=== PATIENT | female | born 2000 | race Caucasian/White ===

== ENCOUNTER 2022-05-29 08:33 | Outpatient (CLI) | payer OTHER, SELFPAY ==
--- NOTE | 2022-05-29 08:45 | CRLHL7_ITS ---
For Patients: As a result of the Century Cures Act, medical imaging exams and procedure reports are released immediately into your electronic medical record. You may view this report before your referring provider. If you have questions, please contact your health care provider. INDICATION: Third trimester scan, evaluate growth. CHRONIC HYPERTENSION AFFECTING COMPARISON: 03/22/2022 TECHNIQUE: Real time reese scale imaging of the fetus was performed. FINDINGS: Sonographic imaging demonstrates a single living intrauterine gestation. Fetus demonstrates a regular cardiac rate of 139 beats per minute. Fetus has a vertex position. The placenta lies posteriorly. Amniotic fluid volume appears normal and there is a single deepest vertical pocket: 5.0 cm. The estimated weight is 1965gm which lies at the 43rd %. On the prior OB ultrasound exam dated 03/22/2022 the estimated weight was at the 52nd%. BPD 34th percentile. HC 30th percentile. AC 53rd percentile. FL 38th percentile. The HC/AC ratio measures 1.05 range (0.96-1.13). Normal gross body movements, tone and respiratory activity. IMPRESSION: Sonographic gestational age 32 weeks 3 days and sonographic due date 07/21/2022. Good correlation with dates. Normal interval growth. Estimated weight 43rd percentile. Abdominal circumference 53rd percentile. Normal biophysical profile 06/19. Dictated by Wander Escobar MD @ 05/29/2022 10:12:37 AM (Electronically Signed)
== END 2022-05-29 08:34 | disposition home or self-care (01) ==
PROVIDERS: Visit Provider Physician Assistant
DX: O10.913 Unspecified pre-existing hypertension complicating pregnancy, third trimester (principal); Z3A.32 32 weeks gestation of pregnancy
CPT/HCPCS: 76816; 76819

== ENCOUNTER 2022-06-19 10:46 | Outpatient (CLI) | payer OTHER, SELFPAY ==
[2022-06-19 15:23] LABS: Alanine Aminotransferase* 33 U/L (4-35); Aspartate Amino Transferase* 25 U/L (12-35)
[2022-06-19 15:25] LABS: Total Protein Urine 19 mg/dL
[2022-06-19 15:26] LABS: Creatinine Urine 134.4 mg/dL
[2022-06-20 09:12] LABS: Strep B DNA Probe NEGATIVE (Negative)
== END 2022-06-19 10:47 | disposition home or self-care (01) ==
PROVIDERS: Visit Provider Obstetrics & Gynecology
DX: Z34.93 Encounter for supervision of normal pregnancy, unspecified, third trimester (principal); Z3A.35 35 weeks gestation of pregnancy
CPT/HCPCS: 82570; 84156; 84450; 84460; 84550; 87081; 87653

== ENCOUNTER 2022-06-23 09:32 | Outpatient (CLI) | payer OTHER, SELFPAY ==
[2022-06-23 12:15] LABS: Alanine Aminotransferase* 33 U/L (4-35); Aspartate Amino Transferase* 27 U/L (12-35); Blood Urea Nitrogen* 11 mg/dL (5-24); Creatinine* 0.5 mg/dL (0.5-1.5); Estimated Glomerular Filt Rate 134 ml/min
[2022-06-23 12:24] LABS: Total Protein Urine 13 mg/dL
== END 2022-06-23 09:33 | disposition home or self-care (01) ==
PROVIDERS: Obstetrics & Gynecology; Visit Provider Obstetrics & Gynecology
DX: O10.913 Unspecified pre-existing hypertension complicating pregnancy, third trimester (principal); Z3A.35 35 weeks gestation of pregnancy
CPT/HCPCS: 76816; 76819; 82565; 82570; 84156; 84450; 84460; 84520; 87081; 87653

== ENCOUNTER 2022-06-24 10:55 | Outpatient (CLI) | payer OTHER, SELFPAY ==
[2022-06-24] MEDS: BETAMETHASONE SOD PHOS/ACETATE 6 MG/ML ML 12 MG IM (11:22)
== END 2022-06-24 11:25 | disposition home or self-care (01) ==
LOC: OB CLI 10:56 → OB 06-26 07:37
PROVIDERS: Visit Provider Obstetrics & Gynecology
DX: Z34.93 Encounter for supervision of normal pregnancy, unspecified, third trimester (principal); Z3A.35 35 weeks gestation of pregnancy
CPT/HCPCS: 99211; J0702

== ENCOUNTER 2022-06-26 09:32 | Outpatient (CLI) | payer OTHER, SELFPAY ==
--- NOTE | 2022-06-26 09:45 | CRLHL7_ITS ---
For Patients: As a result of the Century Cures Act, medical imaging exams and procedure reports are released immediately into your electronic medical record. You may view this report before your referring provider. If you have questions, please contact your health care provider. INDICATION: HYPERTENSION TECHNIQUE: Real time reese scale imaging of the fetus was performed. COMPARISON: 06/23/2022 FINDINGS: Sonographic imaging demonstrates a single living intrauterine gestation. Fetus demonstrates a regular cardiac rate of 161 beats per minute. Fetus has a vertex position. The placenta lies fundal posterior. Amniotic fluid volume appears normal and there is a single deepest pocket of 5.0 cm. The estimated weight is 2801gm which lies at the 42nd %. On the prior OB ultrasound dated 06/23/2022 the estimated weight was at the 49th percentile. BPD 55th percentile. HC 24th percentile. AC 55th percentile. FL 23rd percentile. The fetus was active and demonstrated normal breathing movements. There was normal flexion and extension of the trunk and extremities. IMPRESSION: Normal biophysical profile score 8/8. Sonographic gestational age 36 weeks and 0 days and sonographic due date 07/24/2022. Good correlation with dates. Normal interval growth. Estimated weight 42nd percentile. Abdominal circumference 55th percentile. Dictated by Wander Escobar MD @ 06/26/2022 11:22:04 AM (Electronically Signed)
== END 2022-06-26 09:33 | disposition home or self-care (01) ==
PROVIDERS: Visit Provider Physician Assistant
DX: O10.913 Unspecified pre-existing hypertension complicating pregnancy, third trimester (principal); Z3A.36 36 weeks gestation of pregnancy
CPT/HCPCS: 76816; 76819

== ENCOUNTER 2022-06-30 15:57 | Inpatient (IN) | payer OTHER, SELFPAY ==
[2022-06-30 16:06] VITALS: BMI 42.5
[2022-06-30 16:23] VITALS: BP 139/75; PULSE 114
[2022-06-30 16:25] VITALS: RESP 16; TEMP 36.8
[2022-06-30 17:08] LABS: SARS PCR* Negative SARS-CoV-2 (Negative)
--- NOTE | 2022-06-30 17:37 | W.PM.LDBA ---
Subjective History of Present Illness Time Seen by Provider: 17:37 Date Seen: 06/30/22 Narrative: Patient is being admitted to Labor and Delivery for induction of labor secondary to chronic hypertension. She is a 22 year old at 36 6/7 weeks gestation. Her full history and physical was dictated by Dr. Ramírez on 06/23/2022. Please see this for details. Her Pena score is 4. Cervical ripening is indicated. Comments: Specific Issues/Plans Single, Father of baby is involved. Name?? Baby: Girl. Transfered OB at 16 weeks and 3 days.? 1.? Chronic hypertension Has never been on medication. Monitoring home blood pressures Baseline pre E labs 01/05/2022:? All normal. ALT 29, AST 19.? Protein creatinine ratio could not be calculated Protein creatinine ratio 02/07/2022: .11 Baby aspirin daily.? Stop at 36 weeks. If blood pressure is well controlled, not on medication will start growth ultrasounds Q4 weeks at 32 weeks testing starting at 32 weeks.? BPP and growth ultrasound at 36 weeks, ordered. If she remains off medication, delivery 38 to 39 6/7 weeks Blood pressure noted to be elevated on 06/19/2022:? Hemoglobin 11.3, platelets 318, uric acid 4.0, AST 25, ALT 33. Urine P/C: 0.10.? Initiate twice weekly antepartum testing. 06/23/2022:? BPP 06/19.? SDP:? 5.8 cm.? EFW 2773 g, 6 lb 2 oz, 49%. BP elevated on 06/23/2022 repeat preeclampsia labs ordered:? Hemoglobin 11.8, platelets 322, BUN 11, creatinine 0.5, AST 27, ALT 33, urine P/C: 0.10. Betamethasone:? 06/23 and 06/24/2022. Cervical ripening 06/30/2022 with Cook catheter followed by induction of labor on 07/01/2022 at 37 weeks 0 days gestation. 2.? Obesity, BMI greater than 40 Hemoglobin A1c 5.4% Anesthesia consult: 81 mg of aspirin daily? Will be doing growth ultrasounds and testing secondary to #1. 3.? Seizure disorder, with last seizure 04/2021 Patient self discontinued Keppra in August.? Patient was referred to neurology by previous provider, at transfer appointment she had not yet seen Neurology.? She does not want to restart Keppra. Referral placed for urgent consult with Neurology:? Previously seen at [facility], but has outstanding balance and they refuse to see her despite her request for payment plan. Dr. Cherry recommended she remain off Keppra Social work to be consulted 06/12/22 4.? MFM consult for 1-3 5.? Anxiety and depression Lexapro 15 mg, at transfer appointment reported doing very well. 6.? Asthma, mild intermittent.? Allergy induced.? Reports rare albuterol use. 7.? Declined flu and COVID vaccine 8.? Vitamin D deficient, vitamin-D at 1st OB 13.5 Stopped taking supplements with more sun exposure. Repeat .? 9.? Rubella nonimmune:?MMR OB - H&P: Exam Physical Exam: Vital signs: Pulse BP 114 H 139/75 06/30/22 16:23 06/30/22 16:23 Narrative: VITAL SIGNS: Noted above. GENERAL APPEARANCE: Alert cooperative white female in no acute distress. MOOD AND AFFECT: Normal. CV: Heart regular rate and rhythm. PULM: Lungs clear to auscultation bilaterally. ABDOMEN: Soft, gravid, nontender. Fundal height is consistent with term gestation. The fetus is in a vertex presentation by Brayan's. heart tones are present with the Doptones in the 140s. : Normal female external genitalia. Cervix is posterior, soft, 1 cm dilated, 50% effaced, with vertex at a -2 station but ballotable. EXTREMITIES: Without significant edema, nontender bilaterally. NEURO: Intact. OB - Problem Based A/P Additional Plan (1) : Status: Acute (2) Chronic hypertension during : Status: Acute Plan 1. We will check baseline labs, including CBC, ALT, AST, creatinine, and urine protein/creatinine ratio. 2. Verbal consent was obtained for cervical ripening. A Cook catheter was placed. The patient was unable to tolerate full distension the balloon secondary to severe cramping. 50 mL was instilled in to the intracervical balloon, and 30 mL into the intravaginal balloon. Will start low-dose Pitocin intravenously per protocol beginning at 9:00 p.m. this evening. 3. The patient was advised that there are medications that she can request overnight for discomfort and to aid with sleep if needed. 4. Dr. Ramírez to take over at 7:00 a.m. tomorrow morning. Delivery/Labor/Induction Plan Plan: induction Induction method: Intracervical balloon catheter
[2022-06-30 18:19] VITALS: BP 129/67; PULSE 83
[2022-06-30 19:32] VITALS: BP 131/74; PULSE 82
[2022-06-30 19:55] LABS: Total Protein Urine 15 mg/dL
[2022-06-30 19:56] LABS: Creatinine Urine 172.8 mg/dL
[2022-06-30 21:36] LABS: Basophils Percent Auto 0.2 % (0.0-3.0); Eosinophils Percent Auto 0.6 % (0.0-7.0); Hemoglobin* 11.6 gm/dL (12.0-16.0); Immature Granulocytes Abs Auto 0.04 K/uL (0.00-0.30); Lymphocytes Percent Auto 17.2 % (20-44); Mean Corpuscular HGB Conc 33 gm/dL (32-36); Mean Corpuscular Hemoglobin 28 pg (26-34); Mean Corpuscular Volume 84 fL (80-100); Monocytes Percent Auto 6.6 % (0.0-11.0); Neutrophils Percent Auto 75.1 % (42.0-72.0); Platelet Count* 345 K/uL (140-440); RDW Coefficient of Variation % 13.1 % (11.5-15.5); Red Blood Count 4.19 m/uL (4.00-5.20); White Blood Count* 12.48 K/uL (4.50-11.00)
[2022-06-30] MEDS: LACTATED RINGERS 1000 ML 1,000 ML 125 ML IV (21:47)
[2022-06-30 21:50] LABS: Slide Review Reflex No
[2022-06-30] MEDS: OXYTOCIN 30 unit/500 ML in NS 30 UNIT/500 ML BAG IVPB (21:50)
[2022-06-30 21:52] LABS: Alanine Aminotransferase* 31 U/L (4-35); Aspartate Amino Transferase* 21 U/L (12-35); Blood Urea Nitrogen* 13 mg/dL (5-24); Creatinine* 0.5 mg/dL (0.5-1.5); Est. Creatinine Clearance* 168.72; Estimated Glomerular Filt Rate 134 ml/min
[2022-06-30 21:53] LABS: INR 0.86 (0.91-1.10); Prothrombin Time 12.1 Seconds
[2022-06-30 21:54] LABS: Fibrinogen* 650 mg/dL (200-450)
[2022-06-30] MEDS: hydrOXYzine pamoate 25 MG CAPSULE 100 MG PO (22:53)
[2022-06-30] MEDS: MORPHINE 10 MG/ML inj IM (22:54)
[2022-06-30 23:56] VITALS: BP 117/56; PULSE 90; TEMP 36.6
[2022-07-01] VITALS (49 sets, daily range): BP systolic 114–172; BP diastolic 56–91; PULSE 81–134; RESP 14; TEMP 36.6–36.9; O2SAT 97–99
[2022-07-01] MEDS: LACTATED RINGERS 1000 ML 1,000 ML 125 ML IV (05:50)
--- NOTE | 2022-07-01 08:34 | PM.OBPNL ---
Pain Control Time Seen by Provider: 08:34 Date Seen: 07/01/22 Pain control: tolerating well Comments: Subjective: Patient is mildly uncomfortable with contractions. She states it feels like ?cramping?. Pitocin: 10 milliunits/minute. Verbal consent obtained for artificial rupture of membranes. Vital signs: Per electronic medical record. Most recent blood pressure 140/73. EFM: Baseline 140s, positive accelerations, negative decelerations, moderate variability, reactive. Category 1. [place]: Contractions every 2-3 minutes. SVE: 5 cm/50%/-1/posterior/soft. AROM: Clear, moderate fluid. Assessment: 22-year-old 1 para 0 at 37 weeks 0 days gestation undergoing induction of labor for chronic hypertension with gestational exacerbation. Plan: 1. Continue Pitocin per labor induction protocol. 2. GBS negative 3. Considering epidural for labor analgesia Assessment and Plan Pitocin rate (mU/min): 10 Assessment: induction ongoing Plan: continue present management
[2022-07-01] MEDS: fentaNYL 100 MCG/2 ML inj IVP ×2 (10:26→13:15)
[2022-07-01] MEDS: LACTATED RINGERS 1000 ML 1,000 ML 115 ML IV (14:44)
[2022-07-01] MEDS: ROPIVACAINE 0.2% 100 ml 100 ML 12 MG EPIDURAL (15:35)
[2022-07-01] MEDS: LIDOCAINE 2% (PF) 5 ML VIAL EPIDURAL (15:35)
--- NOTE | 2022-07-01 15:35 | P.OBPN_ITS ---
Pain Control Time Seen by Provider: 15:35 Date Seen: 07/01/22 Comments: S: Sandra is becoming very uncomfortable with contractions. She has had 2 doses of IV fentanyl. Verbal consent to check for cervical dilation. Pitocin: 11 milliunits/minute. O: Vital signs: Please see the patient's heart monitoring tracing for vital signs. Blood pressures have been variable between 130-155/78-85. EFM: 150s, moderate variability, (+) accelerations, sporadic early decelerations. Reactive. Category 2, reassuring status. [place]: Q 2-4 minutes SVE: 6 cm/100%/-1/mid/soft. A: 22-year-old 1 para 0 at 37 weeks 0 days gestation undergoing induction of labor for chronic hypertension with gestational exacerbation. P: 1. Continue current management with Pitocin per induction protocol. 2. Patient is requesting an epidural for labor analgesia: Anesthesia requested.
--- NOTE | 2022-07-01 15:47 | P.ANBPRC_ITS ---
[facility] Medical History Anxiety and depression Asthma Chronic hypertension during Seizure disorder Surgical History History of excision of pilonidal cyst Social History Smoking Status: Never smoker Meds Home Medications and Allergies Home Medications Medication Instructions Recorded Confirmed Type albuterol sulfate 90 mcg/actuation 2 puff inhalation Q6H PRN 05/29/22 06/30/22 History aerosol inhaler Allergies Allergy/AdvReac Type Severity Reaction Status Date / Time No Known Allergies Allergy Unknown Verified 06/30/22 16:58 Results Labs Labs: Laboratory Results - last 24 hr 06/30/22 06/30/22 06/30/22 16:10 19:30 21:25 WBC 12.48 H RBC 4.19 Hgb 11.6 L Hct 35.0 MCV 84 MCH 28 MCHC 33 RDW Coeff of Kia 13.1 Plt Count 345 Neut % (Auto) 75.1 H Lymph % (Auto) 17.2 L [place] % (Auto) 6.6 Eos % (Auto) 0.6 Baso % (Auto) 0.2 Neut # (Auto) 9.40 H Lymph # (Auto) 2.10 [place] # (Auto) 0.80 Eos # (Auto) 0.10 Baso # (Auto) 0.00 Abs Immat Gran (auto) 0.04 INR Fibrinogen BUN Creatinine Estimated Creat Clear Estimated GFR AST ALT Urine Creatinine 172.8 Protein/Creatinin Ratio 0.00 Urine Total Protein 15 SARS-CoV-2 (PCR) Negative SARS-CoV-2 Blood Type Antibody Screen 06/30/22 06/30/22 06/30/22 21:25 21:25 21:25 WBC RBC Hgb Hct MCV MCH MCHC RDW Coeff of Kia Plt Count Neut % (Auto) Lymph % (Auto) [place] % (Auto) Eos % (Auto) Baso % (Auto) Neut # (Auto) Lymph # (Auto) [place] # (Auto) Eos # (Auto) Baso # (Auto) Abs Immat Gran (auto) INR 0.86 L Fibrinogen 650 H BUN 13 Creatinine 0.5 Estimated Creat Clear 168.72 Estimated GFR 134 AST 21 ALT 31 Urine Creatinine Protein/Creatinin Ratio Urine Total Protein SARS-CoV-2 (PCR) Blood Type O Positive Antibody Screen NEGATIVE Vital Signs Vital Signs: Last Vital Signs Temp 97.9 F 07/01/22 13:34 Pulse 98 07/01/22 15:46 Resp 14 07/01/22 04:08 BP 152/78 H 07/01/22 15:46 Pulse Ox 98 07/01/22 15:43 Weight: 123.241 kg Height: 170.18 cm Anesthesia Procedures Epidural Insertion Patient Location: OB Start Time: 15:15 Stop Time: 16:02 Start Date: 07/01/22 Stop Date: 07/01/22 Patient Position: sitting Performed By: Niall Gill Preanesthetic Checklist: risks and benefits discussed and anesthesia consent Prep: chlorhexidine gluconate Monitoring: blood pressure monitoring, shelter monitor, continuous pulse oximetry and heart rate Approach: midline Vertebral Space: lumbar (1-5) Epidural Technique: ALBERTO saline Needle Type: Tuohy needle Injection Technique: continuous catheter Needle gauge: 17 Needle Length (cm): 10 cm Needle Insertion Depth (cm): 8 Catheter Gauge: 19 Catheter Type: multi-orifice Catheter at skin depth (cm): 11 Test Dose Result: negative and lidocaine 1.5% with epinephrine 1 to 200,000
[2022-07-01] MEDS: LABETALOL HCL 5 MG/ML inj IVP (17:51)
--- NOTE | 2022-07-01 18:09 | PM.OBPRCVD ---
Procedure Delivery date: 07/01/22 Procedure Done: Global Procedure Details: Sandra is a 22 year-old G 1 P 0 now 1 admitted on 06/30/2022 at 4:30 p.m. at 36 Weeks, 6 Days gestation for cervical ripening followed by induction of labor for chronic hypertension. Cervical exam on admission was 1 cm/40 % effaced/-2 station with membranes intact in vertex presentation. Contractions were sporadic. heart rate demonstrated baseline 140-150 bpm with moderate variability, positive accelerations, negative decelerations; a category 1 tracing. AROM occurred on 07/01/2022 at 8:20 a.m. with clear fluid. Labor Analgesia: Fentanyl and epidural. Pitocin: Yes, maximum 11 milliunits/minute Labor onset: 07/01/2022 at noon. Complete: 07/01/2022 at 5:04 p.m.. Pushin07/01/2022 at 5:22 p.m.. heart tones during second stage were: Category 1. Baseline 150s with accelerations and moderate variability between contractions. No decelerations with contractions. Reactive At 5:30 p.m. a viable female delivered in vertex direct OA presentation over second-degree perineal and first-degree left periurethral lacerations via spontaneous vaginal delivery. The was placed on maternal abdomen. Cord was clamped and cut after a 60 second delay. Nose and mouth were bulb suctioned. weight pending. 8 at 1 minute and 9 at 5 minutes. Shoulder dystocia: No. Nuchal cord: No Placenta delivered spontaneously incomplete at 5:42 p.m. with a 3 vessel cord. Laceration(s): 2nd degree perineal. Repaired using 3-0 Vicryl suture in the usual manner. The first-degree left periurethral was repaired using 4-0 Vicryl in a running manner. Blood loss: 75 mL. Blood loss measurement type: Quantitative Sponge and needles counts are correct. Specimen: Placenta Mother and were stable after delivery. The patient is planning on breast feeding. Events: Chronic Hypertension Induction method: Intracervical balloon catheter (Followed by Pitocin and AROM.) Delivery monitor: external FHT Route of delivery: Laceration description: Perineal - 2nd Degree Delivery repair: Vicryl Anesthesia type: Epidural Disposition: floor Complications: Patient received 1 dose of labetalol 20 mg IV within 15 minutes of delivery due to systolic blood pressure greater than 160.
[2022-07-01] MEDS: IBUPROFEN 600 MG TABLET PO (20:38)
[2022-07-01] MEDS: LABETALOL HCL 100 MG TABLET 200 MG PO (20:39)
[2022-07-01] MEDS: ACETAMINOPHEN 500 MG TABLET 1000 MG PO (22:59)
[2022-07-02] VITALS (7 sets, daily range): BP systolic 116–141; BP diastolic 79–93; PULSE 78–92; RESP 16–18; TEMP 36.4–36.5; O2SAT 97
[2022-07-02] MEDS: IBUPROFEN 600 MG TABLET PO ×4 (02:29→21:05)
[2022-07-02] MEDS: ACETAMINOPHEN 500 MG TABLET 1000 MG PO ×3 (05:03→17:25)
[2022-07-02 05:15] LABS: Basophils Percent Auto 0.1 % (0.0-3.0); Eosinophils Percent Auto 0.3 % (0.0-7.0); Hematocrit 31.4 % (33.0-51.0); Hemoglobin* 10.5 gm/dL (12.0-16.0); Immature Granulocytes Abs Auto 0.04 K/uL (0.00-0.30); Lymphocytes Percent Auto 19.9 % (20-44); Mean Corpuscular HGB Conc 33 gm/dL (32-36); Mean Corpuscular Hemoglobin 28 pg (26-34); Mean Corpuscular Volume 84 fL (80-100); Monocytes Percent Auto 8.3 % (0.0-11.0); Neutrophils Percent Auto 71.1 % (42.0-72.0); Platelet Count* 223 K/uL (140-440); RDW Coefficient of Variation % 13.1 % (11.5-15.5); Red Blood Count 3.72 m/uL (4.00-5.20); White Blood Count* 14.45 K/uL (4.50-11.00)
[2022-07-02 05:18] LABS: Slide Review Reflex No
[2022-07-02 05:32] LABS: Alanine Aminotransferase* 25 U/L (4-35); Aspartate Amino Transferase* 26 U/L (12-35); Blood Urea Nitrogen* 15 mg/dL (5-24); Creatinine* 0.5 mg/dL (0.5-1.5); Est. Creatinine Clearance* 168.72; Estimated Glomerular Filt Rate 134 ml/min
[2022-07-02] MEDS: LABETALOL HCL 100 MG TABLET 200 MG PO ×2 (08:34→21:06)
[2022-07-02] MEDS: DOCUSATE SODIUM 100 MG CAPSULE PO (08:34)
--- NOTE | 2022-07-02 08:35 | PM.OBPNVD1 ---
OB - PN:Subj Subjective Time Seen by Provider: 08:35 Date Seen: 07/02/22 Interval history: HPI: Sandra is day 1 from a normal spontaneous vaginal delivery at 37 weeks 0 days gestation after undergoing an induction of labor for chronic hypertension with gestational exacerbation. She had 1 dose of IV labetalol within 30 minutes after delivery due to systolic blood pressure of 160s x3. Her blood pressures have been in the normal range since then. She is on labetalol 200 mg p.o. b.i.d.: I decreased the labetalol to 100 mg b.i.d. today as her blood pressures have been normal . Preeclampsia labs were completely normal this morning. No additional labs were ordered. She is tolerating a regular diet. Using ibuprofen and Tylenol which has controlled her pain well. She is . Preeclampsia labs 07/02/2022: hgb: 10.5, plts 223, BUN 15, creatinine 0.5, AST 26, ALT 25: All normal. No additional preeclampsia labs were ordered. OB - PN: Obj Exam Physical Exam: Vital signs: Temp Pulse Resp BP Pulse Ox O2 Del Method 97.6 F 78 16 125/80 99 07/02/22 05:03 07/02/22 05:03 07/02/22 05:03 07/02/22 05:03 07/01/22 15:48 07/02/22 05:03 Narrative: General: Pleasant, tired, woman in no acute distress. Vital signs: See electronic medical record Psychiatric: Alert and oriented x3. Abdomen: Soft, nontender, nondistended with normal bowel sounds throughout. Fundus at 2 cm below the umbilicus. Chest: Clear to auscultation bilaterally without wheezes, rales or rhonchi. Heart: Regular rate and rhythm without gallop, rub or murmur. Lochia: Small rubra Extremities: No pain. +1 bilateral LE edema: normal. OB - PN: Obj Data Labs Labs: Laboratory Results - last 24 hr 07/02/22 07/02/22 05:07 05:07 WBC 14.45 H RBC 3.72 L Hgb 10.5 L Hct 31.4 L MCV 84 MCH 28 MCHC 33 RDW Coeff of Kia 13.1 Plt Count 223 Neut % (Auto) 71.1 Lymph % (Auto) 19.9 L [place] % (Auto) 8.3 Eos % (Auto) 0.3 Baso % (Auto) 0.1 Neut # (Auto) 10.30 H Lymph # (Auto) 2.90 [place] # (Auto) 1.20 H Eos # (Auto) 0.00 Baso # (Auto) 0.00 Abs Immat Gran (auto) 0.04 BUN 15 Creatinine 0.5 Estimated Creat Clear 168.72 Estimated GFR 134 AST 26 ALT 25 OB - PN: A/P Vaginal Delivery Assessment and Plan (1) : Status: Acute (2) Chronic hypertension during : Problem details: 1. Decrease labetalol to 100 mg b.i.d. Status: Acute Plan Comments: 1. Continue routine care 2. Planning on discharge home tomorrow.
[2022-07-02] MEDS: ESCITALOPRAM 10 MG TABLET 15 MG PO (10:12)
[2022-07-03] MEDS: ACETAMINOPHEN 500 MG TABLET 1000 MG PO (01:34)
[2022-07-03 01:36] VITALS: BP 122/81; PULSE 99; RESP 16; TEMP 36.4
[2022-07-03 06:18] VITALS: BP 118/77; PULSE 82; RESP 16
[2022-07-03] MEDS: IBUPROFEN 600 MG TABLET PO (06:26)
--- NOTE | 2022-07-03 07:56 | P.DS_ITS ---
DS: Providers Provider Date Seen: 07/03/22 Date of admission: 06/30/22 15:57 Primary care physician: Not a Local Provider Admitting Clinician: Norah Camarena MD Attending Physician on discharge: Norah Camarena MD Date of Discharge: 07/03/22 Exam Const: Vital Signs, click to edit/add: Vital Signs - 24 hr 07/02/22 08:00 07/02/22 12:15 07/02/22 17:00 Temperature 97.7 F 97.6 F 97.7 F Pulse Rate [Blood Pressure Cuff] 91 87 Respiratory Rate 16 16 16 Blood Pressure [Ri ght Arm] 116/81 123/79 129/83 Pulse Oximetry 97 Oxygen Delivery Me thod Room Air Room Air Room Air 07/02/22 21:34 07/03/22 01:36 07/03/22 06:18 Temperature 97.6 F Pulse Rate [Blood Pressure Cuff] 99 82 Respiratory Rate 16 16 16 Blood Pressure [Ri ght Arm] 141/93 H 122/81 118/77 Pulse Oximetry Oxygen Delivery Me thod Documenting provider has reviewed patient's vital signs: yes Common normals: no apparent distress, average body habitus, oriented x3, no limitations, healthy appearing, alert and well nourished HENMT: Common normals: hearing grossly normal bilaterally Head and scalp: normal to inspection Face and sinus: normal facial exam Eye: General eye: normal appearance of both eyes Neck & C-Spine: Common normals: full ROM, supple and no JVD Resp: Common normals: normal respiratory effort, no retractions, no use of accessory muscles and clear to auscultation bilaterally Auscultation: clear t o auscultation bilaterally Cardio: Common normals: no JVD, regular rate, regular rhythm, S1 normal heart sound, S2 normal heart sound, no gallops, no clicks, no murmurs and no rub Rate: regular rate Rhythm: regular rhythm Heart sounds: S1 normal and S2 normal GI: Common normals: soft to palpation and non-tender Palpation: soft : Uterus: U/2 Lochia: small Extremity: Common normals: full ROM Neuro: Common normals: oriented x3 Sensorium/orientation: alert Psych: Common normals: mental status grossly normal and thought process normal Thought process: normal thought process OB - DS: Summary Hospital Course Hospital Course: The patient is a 22 year old G 1 now P 1 at 37.0 weeks gestation that was admitted to the [facility] on 06/30/22 for IOL for chronic HTN. She had an uncomplicated vaginal delivery. She delivered a viable female .? Her pain is well controlled with current medications.? She has no new complaints.? She is voiding without difficulty.? Has a good appetite, is tolerating a general diet, is passing flatus, and has had a bowel movement.? Has?a small amount of rubra lochia.? She is ambulating well.?She is breast feeding and that is going well. the patient has done well. Her Blood pressures have been stable on 100mg of Labetalol BID. She will remain on this dose and continue to check her blood pressures at home. Peripartum Data Infant delivery method: Vaginal Laceration description: Perineal - 2nd Degree Episiotomy description: None complications: none Gender: Female Infant Discharge Plan: Home Status at Discharge Functional status at discharge: independent ambulation Overall status at discharge: patient is progressing back to baseline Time Spent with Patient Time attestation: Total time spent providing and/or coordinating discharge services: Discharge Plan Discharge Disposition: Home, Self-Care Date of Admission: 06/30/22 15:57 Primary Care Provider: Provider,Not a Local Condition: Stable Anticipated Discharge Date/Time: 07/03/22 12:00 Discharge Medications: New docusate sodium 100 mg Capsule 100 mg PO BID PRN (Reason: Constipation) Qty: 100 0RF ibuprofen 600 mg Tablet 600 mg PO Q6H PRN14 Days Qty: 30 0RF labetalol 100 mg Tablet 100 mg PO BID Qty: 30 0RF Continued DHA 200 mg capsule 200 mg PO QDAY Qty: 100 2RF escitalopram oxalate 10 mg tablet 15 mg PO DAILY Qty: 120 1RF Rx Instructions: 1.5 tab daily albuterol sulfate 90 mcg/actuation HFA aerosol inhaler 2 puff inhalation Q6H PRN Discharge Orders: Discharge Order (Routine); Ordered 07/03/22 Ordered By: Carline Bautista Patient Education: Chronic Hypertension (GEN), Bleeding (DC), Vaginal Delivery (DC) Activity Restrictions/Additional Instructions: Discharge instructions were reviewed with the patient including signs and symptoms of infection and home going medications. Lifting Restrictions:none Do not drive while taking narcotic pain medication. Nothing vaginally for 6 weeks. (no intercourse or tampons) No exercise restrictions. Off Work or School for 6 weeks. Symptoms to report to doctor: -Bleeding that saturates more than one pad per hour ?-Passing clots larger than the size of a golf ball ?-Pain not relieved by prescribed medication ?-Fever above 100.4 degrees Fahrenheit ?-A foul vaginal odor ?-Difficulty in emotions, mood and functions ?-Thoughts of hurting yourself and/or ?-Painful, reddened area in your breast ?-Any drainage, redness or tenderness in your IV/epidural site ?-Severe headache that doesn't improve after taking medications ?-Changes in vision, including temporary loss of vision, blurred vision, and/or light sensitivity ?-Upper abdominal pain (usually under ribs on the right side) ?-Decrease in urination or painful, frequent urinating ?-Chest pain ?-Shortness of breath ?-Tenderness or pain with redness and/swelling in the calf(s) of your leg [facility] for a nurse visit to check BP on 07/06/22 or Sunday07/07/22. Optional 2 week visit: discuss contraceptive options, screen for worsening of anxiety/depression and answer questions on infant feeding with nurse cytology technologist, TOMASZ Correa or Yvonne Fuentes CNP. 6 week exam (annual exam) with any nurse cytology technologist, TOMASZ Correa or Yvonne Fuentes CNP. consultation services are available to all mothers and babies for the first year after delivery.? To make an appointment, please call [phone]. Activity Level: No Restrictions and Activity as Tolerated Discharge Diet: Regular Follow Up Appointments: Kori Diamond CNM [Certified Nurse Glue Bone Drier] - Yvonne Fuentes CNP [Nurse Practitioner] - Lorelei Mccarthy CNM [Certified Nurse Glue Bone Drier] - Carline Bautista CNM [Certified Nurse Glue Bone Drier] - Cynthia Ramírez MD [Staff Physician] - Nedra Jones PA-C [Physician Gelatin Dynamite Packing Operator] - Conchita Jimenez MD [Staff Physician] - Provider,Not a Local [Primary Care Provider] - Norah Camarena MD [Staff Physician] - Forms: [place] Info Instructions
[2022-07-03] MEDS: LABETALOL HCL 100 MG TABLET PO (08:55)
[2022-07-03] MEDS: ESCITALOPRAM 10 MG TABLET 15 MG PO (08:56)
[2022-07-03 08:59] VITALS: BP 125/85; RESP 20; TEMP 36.6; O2SAT 98
[2022-07-03] MEDS: MEASLES,MUMPS,RUBELLA VACC/PF 1 DOSE INJ 1 EACH SUBCUT (11:45)
== END 2022-07-03 12:00 | disposition home or self-care (01) | DRG 806 ==
PROVIDERS: Obstetrics & Gynecology; Admitting Provider Obstetrics & Gynecology; Visit Provider Obstetrics & Gynecology
DX: O10.92 Unspecified pre-existing hypertension complicating childbirth (principal); O99.354 Diseases of the nervous system complicating childbirth; Z37.0 Single live birth; O70.1 Second degree perineal laceration during delivery; O99.214 Obesity complicating childbirth; E66.9 Obesity, unspecified; G40.909 Epilepsy, unspecified, not intractable, without status epilepticus; O99.344 Other mental disorders complicating childbirth; F41.9 Anxiety disorder, unspecified; F32.A Depression, unspecified; J45.20 Mild intermittent asthma, uncomplicated; Z3A.36 36 weeks gestation of pregnancy
CPT/HCPCS: 01967; 36415; 59200; 82565; 82570; 84156; 84450; 84460; 84520; 85018; 85025; 85384; 85610; 86850; 86900; 86901; 87635; 88307; A9270; C1726; J2270; J2795; J3010; J7120

== ENCOUNTER 2022-07-07 09:24 | Outpatient (CLI) | payer OTHER, SELFPAY ==
--- NOTE | 2022-07-07 16:42 | P.LACCB_ITS ---
Consult Note - Mom Date of Visit Date of visit: 07/07/22 executive consultant: Leonor Greene Visit Code: Visit Patient's Information Phone number: [phone] : 1 Para: 1 Allergies No Known Allergies Allergy (Unknown, Verified 07/11/22 18:02) Mother's Medical History: Medical History (Updated 07/04/22 @ 00:01 by ) Anxiety and depression Asthma Chronic hypertension during Lactating mother Seizure disorder Work Plans: returns to work in August at [employer] Delivery Information Delivery type: Vaginal Weeks Gestation: 37.0 Gestational Age: AGA Weight: 2.885 kg Discharge Weight: 2.724 kg Baby's Information Baby's Age at Visit: 6 days Baby's Provider or Clinic: Dr. Snell Jaundice: Yes (TSB = 16.5) Reason for Consult Reason for Consult: slow weight gain, bili check, concern for milk transfer Past Experience Past Experience: No Current Frequency of Day Feedings: trying to nurse every 1.5 - 2 hours around the clock Both Breasts: Yes Suck: not very aggressive Latch: fairly wide Length of Time: about 15 minutes active nusing during a 30 - 40 minutes attempt Pumping Pumping: Yes (mom has pumped abotu 4 times/day for the last two days) Quantity Pumped: 1 - 1.5 oz total Supplementing EMB Supplement: Yes (she has giving baby what she's pumped the last two days) Formula Supplement: No Baby Elimination Number of Wet Diapers a Day: every feeding Number of BM a Day: 4 - 6; green-yellow and seedy Breast/Nipple Condition Breast Information: WNL Engorgement: No Maternal Nipple Condition - Left: Common Nipple Maternal Nipple Condition - Right: Common Nipple Sore Nipples: No Onsite Pre-Feed weight: 2.644 kg Post-Feed weight: 2.644 kg Milk Transferred (mL): 0 Pre-Nursing Left Nipple: Within Normal Limits Pre-Nursing Right Nipple: Within Normal Limits Post-Nursing Left Nipple: Within Normal Limits Post-Nursing Right Nipple: Within Normal Limits Assessments/Interventions Assessments/Interventions: Met with mom and baby for consult.? Per PCP note, baby has been slow to gain weight and was 11% below BW on 07/05/22.? Her bilirubin was also elevated and she was started on home phototherapy on that date as well.? Mom reports she's been instructed to nurse baby every 1. 5 - 2 hours and to start supplementing with EBM or formula.? She's been trying to follow the feeding schedule but states baby is very sleepy at the breast and will usually only act ively nurse for about 15 minutes total even though mom keeps trying for up to 20 - 30 minutes.? She's pumped 4 times/day since 07/05 and gets about 1.5 oz total each time.? Baby has been supplemented with the EBM but no formula. Breasts WNL- symmetrical with rounded lower quadrants, intramammary distance is < 1.5 inches.? Nipples are everted and don't flatten or retract on compression; no damage noted.? Mom doesn't report feeling like her milk came in and doesn't feel any kind of a let-down.? She reports hx of depression and HTN in ; her mother states she didn't breastfeed because I just never had anything. Baby has gained 32 grams/day since her visit on 07/05 and is now 8% below BW.? Per mom she has equal ROM when turning her head and moving her extremities.? Her upper frenulum is somewhat tight.? Her palate is WNL and she has a strong suck on a finger.? Her tongue easily extends past the gum line and has good lateral movement.? Her lower frenulum appears to be WNL.? She's jaundiced to her BLE and the TSB = 16.5. Mom latched baby to the left side and she appears to have a wide latch but is very sleepy and needs a lot of stimulation to stay awake; her suckling also appe ars to be mostly non-nutritive.? Despite multiple attempts to rouse her including switching sides x 3, after a 30 minute feeding she didn't transfer any milk.? Mom very teary and obviously discouraged.? We attempted a nipple shield to see if this helped baby to get on the breast more deeply and suckle more aggressively without success.? Mom declined trying to nurse with an SNS. Plan: 1. Breastfeed every 2 - 3 hours, offering both sides and working to keep baby awake and active at the breast.? Instructed mom not to let feedings go past 30 minutes total and experiment with the nipple shield.? 2. Pump for 15 - 20 minutes after every nursing session if possible or at least 6 times/24 hours. 3. Have dad or grandma supplement baby with 1.5 - 2 oz EBM or formula after every nursing session. 4. Per PCP ok to D/C home phototherapy. 5. Will f/u in the Center on 07/08 for a weight and bili check and I will f/u by phone on 07/14 to discuss supply, pumping, possible galactagogues.? Reviewed with mom that it's very possible if she pumps to protect and build her supply, that as baby grows and has more strength/energy she'll be better able to transfer the milk and this can be reassessed at another appointment if she desires. BW = 2885 g D/C = 2724 g 07/05 = 2580 g 07/06 = 2637 g today = 2644 g 07/05 TSB = 18.4 07/06 TSB = 17.9 07/07 TSB = 16.5 Meds Home Medications and Allergies Home Medications Medication Instructions Recorded Confirmed Type albuterol sulfate 90 mcg/actuation 2 puff inhalation Q6H PRN 05/29/22 07/11/22 History aerosol inhaler Allergies Allergy/AdvReac Type Severity Reaction Status Date / Time No Known Allergies Allergy Unknown Verified 07/11/22 18:02
== END 2022-07-07 09:25 | disposition home or self-care (01) ==
PROVIDERS: Visit Provider Obstetrics & Gynecology
DX: Z39.1 Encounter for care and examination of lactating mother (principal)
CPT/HCPCS: 99211

== ENCOUNTER 2022-09-29 08:45 | Outpatient (RCR) | payer OTHER, SELFPAY | END 2023-01-03 13:52 | disposition home or self-care (01) | PROVIDERS: PCP Obstetrics & Gynecology; Visit Provider Obstetrics & Gynecology | DX: R10.9 Unspecified abdominal pain (principal); Z51.89 Encounter for other specified aftercare | CPT/HCPCS: 97110; 97140; 97162 ==

== ENCOUNTER 2024-05-23 07:08 | Outpatient (CLI) | payer OTHER, SELFPAY ==
--- NOTE | 2024-05-23 07:15 | CRLHL7_ITS ---
For Patients: As a result of the Cures Act, medical imaging exams and procedure reports are released immediately into your electronic medical record. You may view this report before your referring provider. If you have questions, please contact your health care provider. INDICATION: First trimester scan, establish dates. COMPARISON: None. TECHNIQUE: Real-time reese-scale imaging of the pelvis was performed. FINDINGS: Sonographic imaging demonstrates a single living intrauterine gestation. The embryo demonstrates a regular cardiac rate measuring 163 beats per minute. The embryo`s crown-rump length measurement of 1.5 cm corresponds to a gestational age of 7 weeks 6 days with a sonographic due date of 01/03/2025. There is a normal-appearing yolk sac. There are no gross abnormalities noted within the embryo at this early state of development. The gestational sac has a normal appearance. There is no evidence of a perigestational hemorrhage. The amount of fluid within the sac appears appropriate for gestational age. The cervix is closed. The myometrium appears normal. The ovaries are of normal size. Corpus luteal cyst right ovary. There are no suspicious fluid collections noted in the cul-de-sac. IMPRESSION: Normal first trimester OB ultrasound exam. Gestational age calculated at 7 weeks 6 days with a sonographic due date of 01/03/2025. Dictated by Wander Escobar MD @ 05/24/2024 7:29:52 PM (Electronically Signed)
== END 2024-05-23 07:09 | disposition home or self-care (01) ==
PROVIDERS: PCP Family Medicine; Visit Provider Physician Assistant
DX: Z34.91 Encounter for supervision of normal pregnancy, unspecified, first trimester (principal); Z3A.01 Less than 8 weeks gestation of pregnancy
CPT/HCPCS: 76817; 82565; 82570; 84156; 84450; 84460; 84520; 86592; 86703; 86704; 86706; 86762; 86787; 86803; 86850; 86900; 86901; 87086; 87340; 87491; 87591

== ENCOUNTER 2024-06-11 07:00 | Outpatient (CLI) | payer OTHER, SELFPAY | END 2024-06-11 07:01 | disposition home or self-care (01) | LOC: NFLDREF 06-12 02:28 | PROVIDERS: PCP Family Medicine; Referring Provider Family Medicine; Visit Provider Physician Assistant | DX: Z34.81 Encounter for supervision of other normal pregnancy, first trimester (principal) | CPT/HCPCS: 82570; 84156 ==

== ENCOUNTER 2024-08-20 12:32 | Outpatient (CLI) | payer OTHER, SELFPAY | END 2024-08-20 12:33 | disposition home or self-care (01) | LOC: US 12:33 | PROVIDERS: PCP Family Medicine; Visit Provider Obstetrics & Gynecology | DX: O99.212 Obesity complicating pregnancy, second trimester (principal); O10.912 Unspecified pre-existing hypertension complicating pregnancy, second trimester; Z3A.20 20 weeks gestation of pregnancy; Z68.42 Body mass index [BMI] 45.0-49.9, adult | CPT/HCPCS: 76811 ==

== ENCOUNTER 2024-09-17 11:18 | Outpatient (CLI) | payer OTHER, SELFPAY | END 2024-09-17 11:19 | disposition home or self-care (01) | PROVIDERS: PCP Family Medicine; Visit Provider Obstetrics & Gynecology | DX: I10 Essential (primary) hypertension (principal) | CPT/HCPCS: 82565; 82570; 84156; 84450; 84460 ==

== ENCOUNTER 2024-10-14 08:05 | Outpatient (CLI) | payer OTHER, SELFPAY ==
--- NOTE | 2024-10-14 08:15 | CRLHL7_ITS ---
For Patients: As a result of the Century Cures Act, medical imaging exams and procedure reports are released immediately into your electronic medical record. You may view this report before your referring provider. If you have questions, please contact your health care provider. INDICATION: Chronic HTN and Obesity complicating TECHNIQUE: Real time reese scale imaging of the fetus was performed. COMPARISON: 08/20/2024 FINDINGS: Sonographic imaging demonstrates a single living intrauterine gestation. Fetus demonstrates a regular cardiac rate of 141 beats per minute. Fetus has a vertex position. The placenta lies anteriorly. Amniotic fluid volume single deepest pocket of 9.4 cm. JAYRO 32.5 cm. The estimated weight is 1492gm which lies at the 90th %. On the prior OB ultrasound dated 08/20/2024 the estimated weight was at the 97th percentile. BPD greater than 97th percentile. HC 96th percentile. HC 91st percentile. FL 41st percentile. The fetus was active and demonstrated normal breathing movements. There was normal flexion and extension of the trunk and extremities. IMPRESSION: Normal biophysical profile score 8/8. Sonographic gestational age 30 weeks 4 days and sonographic due date of 12/19/2024. Sonographic age 15 days ahead of the clinical age. Estimated weight 90th percentile. Abdominal circumference is 91st percentile. BPD greater than 97th percentile. Amniotic fluid single deepest pocket 9.4 cm. JAYRO 32.5 cm. Dictated by Wander Escobar MD @ 10/14/2024 11:55:41 AM (Electronically Signed)
== END 2024-10-14 08:06 | disposition home or self-care (01) ==
PROVIDERS: PCP Family Medicine; Visit Provider Obstetrics & Gynecology
DX: O10.913 Unspecified pre-existing hypertension complicating pregnancy, third trimester (principal); O99.213 Obesity complicating pregnancy, third trimester; Z3A.30 30 weeks gestation of pregnancy; Z3A.28 28 weeks gestation of pregnancy
CPT/HCPCS: 76816; 76819

== ENCOUNTER 2024-10-14 09:38 | Outpatient (CLI) | payer OTHER, SELFPAY | END 2024-10-14 09:39 | disposition home or self-care (01) | PROVIDERS: PCP Family Medicine; Visit Provider Obstetrics & Gynecology | DX: Z34.93 Encounter for supervision of normal pregnancy, unspecified, third trimester (principal); Z3A.28 28 weeks gestation of pregnancy | CPT/HCPCS: 82565; 84450; 84460; 84520; 86592 ==

== ENCOUNTER 2024-10-15 09:00 | Outpatient (RCR) | payer OTHER, SELFPAY | END 2025-02-12 23:59 | disposition home or self-care (01) | PROVIDERS: PCP Family Medicine; Visit Provider Obstetrics & Gynecology | DX: O26.899 Other specified pregnancy related conditions, unspecified trimester (principal); R10.2 Pelvic and perineal pain; R27.9 Unspecified lack of coordination; Z51.89 Encounter for other specified aftercare | CPT/HCPCS: 97110; 97140; 97162; 97535 ==

== ENCOUNTER 2024-10-27 07:01 | Outpatient (CLI) | payer OTHER, SELFPAY ==
--- NOTE | 2024-10-27 07:15 | CRLHL7_ITS ---
For Patients: As a result of the Century Cures Act, medical imaging exams and procedure reports are released immediately into your electronic medical record. You may view this report before your referring provider. If you have questions, please contact your health care provider. INDICATION: JAYRO check TECHNIQUE: Ultrasound OB pelvis transabdominal. Real-time reese-scale imaging of the fetus was performed as well as color Doppler and spectral Doppler analysis of the umbilical artery. COMPARISON: Ob ultrasound 10/14/2024 FINDINGS: Single living intrauterine gestation. heart rate: 155 beats per minute. Presentation: Cephalic. Placenta: Anterior. Amniotic fluid deepest pocket: 10 cm, previously 9.4 cm. Amniotic fluid index: 27.2 cm, previously 32.5 cm. IMPRESSION.: 1. Viable intrauterine in cephalic presentation. 2. Similar mild polyhydramnios with single deepest pocket of 10 cm and JAYRO of 27.2 cm Dictated by Brittany Locke MD @ 10/27/2024 8:06:15 AM (Electronically Signed)
== END 2024-10-27 07:02 | disposition home or self-care (01) ==
LOC: US 07:01
PROVIDERS: PCP Family Medicine; Visit Provider Obstetrics & Gynecology
DX: O10.919 Unspecified pre-existing hypertension complicating pregnancy, unspecified trimester (principal); O40.9XX0 Polyhydramnios, unspecified trimester, not applicable or unspecified
CPT/HCPCS: 76815

== ENCOUNTER 2024-11-11 07:01 | Outpatient (CLI) | payer OTHER, SELFPAY ==
--- NOTE | 2024-11-11 07:15 | CRLHL7_ITS ---
For Patients: As a result of the Century Cures Act, medical imaging exams and procedure reports are released immediately into your electronic medical record. You may view this report before your referring provider. If you have questions, please contact your health care provider. INDICATION: Chronic HTN. Obesity. Polyhydramnios. TECHNIQUE: Real time reese scale imaging of the fetus was performed. COMPARISON: 10/27/2024 FINDINGS/IMPRESSION: Sonographic imaging demonstrates a single living intrauterine gestation. Fetus demonstrates a regular cardiac rate of 161 beats per minute. Fetus has a vertex position. The placenta lies anteriorly. Amniotic fluid single deepest pocket measures 8.7 cm. JAYRO 28.2 cm. The estimated weight is 2551gm which lies at the greater than 97th %. On the prior OB ultrasound dated 10/14/2024 the estimated weight was at the 90th percentile. BPD, HC, AC greater than 97th percentile. FL 62nd percentile. Sonographic gestational age 35 weeks 4 days and a sonographic due date 12/12/2024. Sonographic age 22 days ahead of the clinical age. The fetus was active and demonstrated normal breathing movements. There was normal flexion and extension of the trunk and extremities. Dictated by Wander Escobar MD @ 11/11/2024 1:29:22 PM (Electronically Signed)
== END 2024-11-11 07:02 | disposition home or self-care (01) ==
LOC: US 07:02
PROVIDERS: PCP Family Medicine; Visit Provider Obstetrics & Gynecology
DX: O99.210 Obesity complicating pregnancy, unspecified trimester (principal); O10.913 Unspecified pre-existing hypertension complicating pregnancy, third trimester; O36.63X0 Maternal care for excessive fetal growth, third trimester, not applicable or unspecified; Z3A.35 35 weeks gestation of pregnancy
CPT/HCPCS: 76816; 76819

== ENCOUNTER 2024-11-25 09:10 | Outpatient (CLI) | payer OTHER, SELFPAY ==
--- NOTE | 2024-11-25 09:15 | CRLHL7_ITS ---
For Patients: As a result of the Century Cures Act, medical imaging exams and procedure reports are released immediately into your electronic medical record. You may view this report before your referring provider. If you have questions, please contact your health care provider. INDICATION: CHTN/ Obesity COMPARISON: 11/11/2024 TECHNIQUE: Real time reese scale imaging of the fetus was performed. Without non-stress testing. FINDINGS/IMPRESSION: Sonographic imaging demonstrates a single living intrauterine gestation. Fetus demonstrates a regular cardiac rate of 130 beats per minute. Fetus has a vertex position. The amniotic fluid volume single deepest pocket measurement of 9.4 cm. JAYRO 21.6 cm. The fetus was active and demonstrated normal breathing movements. There was normal flexion and extension of the trunk and extremities. Biophysical profile 06/19. Dictated by Wander Escobar MD @ 11/25/2024 10:40:55 AM (Electronically Signed)
== END 2024-11-25 09:11 | disposition home or self-care (01) ==
LOC: US 09:11
PROVIDERS: PCP Family Medicine; Visit Provider Obstetrics & Gynecology
DX: O10.919 Unspecified pre-existing hypertension complicating pregnancy, unspecified trimester (principal); O99.210 Obesity complicating pregnancy, unspecified trimester
CPT/HCPCS: 76819

== ENCOUNTER 2024-12-02 09:07 | Outpatient (CLI) | payer OTHER, SELFPAY ==
--- NOTE | 2024-12-02 09:15 | CRLHL7_ITS ---
For Patients: As a result of the Century Cures Act, medical imaging exams and procedure reports are released immediately into your electronic medical record. You may view this report before your referring provider. If you have questions, please contact your health care provider. INDICATION: Obesity. Thirty-five week 3 day gestation. Technique: Multiple grayscale, color doppler, M-mode Doppler images from a biophysical profile submitted. FINDINGS: breathing movements: 2 Gross body movements: 2 tone: 2 Amniotic fluid volume: 2 Total: 8/8 Amniotic Fluid Index: 22.4 cm. Single deepest pocket: 11.3 cm Heart rate is 141 beats per minute. IMPRESSION: 1. Normal biophysical profile score of 8/8. 2. Single deepest amniotic fluid pocket 11.3 cm. Dictated by Marcos Moreland MD @ 12/02/2024 11:46:39 AM (Electronically Signed)
== END 2024-12-02 09:08 | disposition home or self-care (01) ==
LOC: US 09:08
PROVIDERS: PCP Family Medicine; Visit Provider Obstetrics & Gynecology
DX: O99.213 Obesity complicating pregnancy, third trimester (principal); Z3A.35 35 weeks gestation of pregnancy
CPT/HCPCS: 76819; 87081; 87653

== ENCOUNTER 2024-12-09 08:57 | Outpatient (CLI) | payer OTHER, SELFPAY | END 2024-12-09 08:58 | disposition home or self-care (01) | LOC: US 08:58 | PROVIDERS: PCP Family Medicine; Visit Provider Obstetrics & Gynecology | DX: O99.213 Obesity complicating pregnancy, third trimester (principal); O10.913 Unspecified pre-existing hypertension complicating pregnancy, third trimester; Z3A.39 39 weeks gestation of pregnancy | CPT/HCPCS: 76816; 76819 ==

== ENCOUNTER 2024-12-14 15:57 | Inpatient (IN) | payer OTHER, SELFPAY ==
[2024-12-14] VITALS (7 sets, daily range): BP systolic 119–135; BP diastolic 60–82; PULSE 83–94; RESP 16–20; TEMP 36.6–36.8; O2SAT 95–98; BMI 47.2
[2024-12-14 16:53] LABS: Total Protein Urine 12 mg/dL
[2024-12-14 16:54] LABS: Creatinine Urine 91.3 mg/dL; Protein Creatinine Ratio Urine 0.13 (0-0.19)
[2024-12-14 17:19] LABS: Hematocrit 32.6 % (33.0-51.0); Hemoglobin* 10.6 gm/dL (12.0-16.0); Mean Corpuscular HGB Conc 33 gm/dL (32-36); Mean Corpuscular Hemoglobin 27 pg (26-34); Mean Corpuscular Volume 82 fL (80-100); Platelet Count* 320 K/uL (140-440)
[2024-12-14 17:22] LABS: Slide Review Reflex No
[2024-12-14 17:35] LABS: Alanine Aminotransferase* 34 U/L (4-35); Aspartate Amino Transferase* 20 U/L (12-35); Blood Urea Nitrogen* 10 mg/dL (5-24); Creatinine* 0.5 mg/dL (0.5-1.5); Est. Creatinine Clearance* 165.81; Estimated Glomerular Filt Rate 133 ml/min
[2024-12-14] MEDS: miSOPROStoL 25 MCG/0.25 TABLET VAGINAL ×2 (17:49→21:42)
--- NOTE | 2024-12-14 17:51 | PM.OBHPLI ---
OB - H&P: HPI Labor/Induction History of Present Illness Time Seen by Provider: 17:51 Date Seen: 12/14/24 Chief complaint: IOL 37.1 CHTN, mild Poly Narrative: The patient is a 24 year old 2 para 1 at 37 weeks gestation by first-trimester ultrasound, who presents for scheduled induction of labor with cervical ripening. is complicated by chronic hypertension on medications (requiring escalating therapy in the last few weeks), mild polyhydramnios, suspected macrosomia, obesity, asthma, anxiety/depression. Of note, seizure disorders on her problem list but patient questions the validity of this diagnosis. She notes she had possible seizures that clinically presented as nighttime awakening, had a 24 hour stay in epilepsy monitoring unit and the results were equivocal. Complete history and physical was documented by Dr. Ramírez on 12/02/24. She is feeling well with no acute concerns. Denies any regular/painful uterine contractions, vaginal bleeding or leaking of fluid. Endorses active movement. No headache, vision changes or right upper quadrant pain. She is normotensive on admission. Specific Issues/Plans Partner: Dante (new relationship) Daughter: Damian Baby: Boy! H&P: NDP 12/02/2024. # testing for chronic hypertension, moderate polyhydramnios and BMI greater than 45: Weekly testing starting at 32 weeks ( testing form complete/scanned) Growth ultrasound between 32 and 36 weeks Delivery at 37-39 weeks # Chronic hypertension Self discontinued antihypertensive medication in November or December of 2022 Aspirin 81 mg Baseline pre E labs: All normal. Protein to creatinine ratio:0.02 24 hour urine for protein: 91.5 mg Serial ultrasounds for growth every 4 weeks beginning 26 weeks Preeclampsia labs prior to initiation of antihypertensive medication Goals for antihypertensive medication to maintain blood pressure < 140/90 Started nifedipine ER 30mg daily on 09/17 Started labetalol 100 mg BID on 10/14 Increase labetalol to 200mg BID testing as described above # Moderate polyhydramnios noted at 28 weeks: JAYRO 32.5, SDP 9.4 1 hr GTT = 97 on day of diagnosis Repeat JAYRO at 30 weeks 10/27/24: mild polyhydramnios: SDP 10.0cm, JAYRO 27.2cm Referral to [facility] if development of severe polyhydramnios (JAYRO >/= 35, SDP >/= 16) # BMI greater than 45.5 Hemoglobin A1c: Not done 1hr GTT: 97 Nutrition referral: declined Referral to anesthesia: placed 10/14 Level 2 ultrasound and MFM consult: consult placed 07/18 testing as described above # Anxiety and depression. PHQ 9 :17, SHABANA 7: 13 @ 1st OB Started Lexapro 10mg @ 1st OB. Counseling referral placed PHQ9 = 6/SHABANA 7 = 4 on 07/18 # Asthma, mild intermittent # History of seizure disorder. Seizure free for 3-4 years off medication # rubella nonimmune MMR # Pelvic pain / pressure, limiting activity at work Referral to PT at 15 6/7 weeks. Work note provided to limit heavy lifting and bending on 07/18. Imaging: Level 2 ultrasound (08/20/2024): Anterior placenta without previa, MVP 4.7 cm, AC 81.3%, EFW 97%, sex is male, normal anatomy 10/14/24: 28 weeks, 3 days. Cephalic, JAYRO 32.5, SDP 9.4, EFW 90%, BPD >97%, HC 96%, AC 91%, FL 41%. 10/27/24: Vtx, mild polyhydramnios: SDP 10.0cm, JAYRO 27.2cm 11/11/2024: Vtx, SDP 8.6cm, JAYRO 28.2cm. W 2551 g, 5 lb 10 oz, >97%. BPD >97%, HC>97%, AC >97%, FL 62%. 12/02/24: Vtx. SDP 11.3cm, JAYRO 22.4. BPP: 8/8 Vaccinations: COVID: declined Flu: declined Tdap: 10/27/2024 RSV: 12/02/2024 GBS: 12/02/24 32 week mental health: PHQ-9: 10, SHABANA-7: 7 Last pap: 05/23/2024 NIL/HPV Negative Meds Home Medications and Allergies Home Medications ?Medication ?Instructions ?Recorded ?Confirmed ?Type albuterol sulfate 90 mcg/actuation 2 puff inhalation Q6H PRN 05/29/22 12/14/24 History aerosol inhaler [id number] 3-fat com #1 27 1 cap PO DAILY 05/23/24 12/14/24 History mg-1 mg-300 mg capsule aspirin 81 mg chewable tablet 81 mg PO QDAY 09/17/24 12/14/24 History magnesium 200 mg tablet 200 mg PO QDAY 10/14/24 12/14/24 History Allergies Allergy/AdvReac Type Severity Reaction Status Date / Time No Known Allergies Allergy Unknown Verified 12/09/24 10:02 OB - H&P: Exam Physical Exam: Vital signs: Temp Pulse Resp BP Pulse Ox 98 F 89 20 129/80 95 12/14/24 16:28 12/14/24 16:29 12/14/24 16:28 12/14/24 16:29 12/14/24 16:27 Narrative: General: Alert and oriented, no acute distress Psych: Appropriate mood and affect Abdomen: Gravid, nontender. NST: Category 1, baseline of 135 beats per minute, moderate variability, 15 x 15 accelerations present, no decelerations [place]: Irregular contractions Cervix: 1.5/20/ballotable OB - Results Labs Labs: Short CBC 12/14/24 Range/Units 17:10 WBC 10.30 (4.50-11.00) K/uL Hgb 10.6 L (12.0-16.0) gm/dL Hct 32.6 L (33.0-51.0) % Plt Count 320 (140-440) K/uL BMP 12/14/24 17:10 BUN 10 Creatinine 0.5 Liver Function 12/14/24 Range/Units 17:10 AST 20 (12-35) U/L ALT 34 (4-35) U/L OB - Problem Based A/P Additional Plan (1) Polyhydramnios: Problem details: Mild Status: Acute (2) BMI 45.0-49.9, adult: Status: Acute (3) GERD (gastroesophageal reflux disease): Status: Acute (4) Chronic hypertension: Problem details: with gestational exacerbation. 12/02/24: Nifedipine ER 30mg daily, labetalol 200mg BID Status: Acute (5) Asthma: Status: Acute (6) Anxiety and depression: Status: Acute (7) Seizure disorder: Problem details: Questionable diagnosis, no AEDs Status: Acute Plan Sandra is a 24-year-old at 37 weeks 1 day gestational age admitted for induction of labor for chronic hypertension requiring escalating medication therapy. is otherwise complicated by mild polyhydramnios, suspected macrosomia, obesity, asthma, anxiety/depression and and a questionable diagnosis of seizure disorder. - Cervix is 1.5/20/ballotable on admission. Plan cervical ripening with Cytotec overnight in the setting of polyhydramnios. - Admission pre E labs are within normal limits - Diligent blood pressure monitoring ongoing, asymptomatic and normotensive on admission - GBS negative - Blood type O positive - EFW 3642 g at greater than the 97th percentile by ultrasound on 12/09/2024
[2024-12-14] MEDS: LABETALOL HCL 100 MG TABLET 200 MG PO (20:35)
[2024-12-15] VITALS (103 sets, daily range): BP systolic 83–184; BP diastolic 42–95; PULSE 73–116; RESP 14–20; TEMP 36.5–36.9; O2SAT 96–98
[2024-12-15] MEDS: miSOPROStoL 25 MCG/0.25 TABLET VAGINAL ×2 (01:36→05:32)
[2024-12-15] MEDS: NIFEdipine 30 MG TAB.ER.24 PO ×2 (07:54→22:16)
[2024-12-15] MEDS: LABETALOL HCL 100 MG TABLET 200 MG PO ×2 (07:54→22:15)
[2024-12-15] MEDS: ACETAMINOPHEN 500 MG TABLET 1000 MG PO (08:54)
[2024-12-15] MEDS: LACTATED RINGERS 1000 ML 1,000 ML 124 ML IV (09:59)
[2024-12-15] MEDS: OXYTOCIN 30 unit/500 ML in NS 30 UNIT/500 ML BAG IVPB (09:59)
--- NOTE | 2024-12-15 11:54 | PM.OBPNL ---
Subjective Date Seen: 12/15/24 Narrative: Sandra is a 24 yo O0X2-6-9-9 woman at 37 2/7 weeks' gestation here for IOL for chronic HTN complicating . Thus far, she has had 5 doses of vaginal cytotec for cervical ripening. She was started on oxytocin for IOL at 10 AM, current at a dose of 2 mU/min. She is feeling contractions, but they are not strong. She had one severe-range BP today, with repeat lower and not requiring anti-hypertensives. OB Problem List: # Chronic hypertension Started nifedipine ER 30mg daily on 09/17 Started labetalol 100 mg BID on 10/14 Increase labetalol to 200mg BID # Moderate polyhydramnios noted at 28 weeks: JAYRO 32.5, SDP 9.4 Repeat JAYRO at 30 weeks 10/27/24: mild polyhydramnios: SDP 10.0cm, JAYRO 27.2cm # BMI greater than 45.5 Referral to anesthesia: placed 10/14 # Anxiety and depression. Started Lexapro 10mg @ 1st OB. # Asthma, mild intermittent # History of seizure disorder. Seizure free for 3-4 years off medication # rubella nonimmune MMR Objective Vital Signs: Last Vital Signs Temp 97.7 F 12/15/24 11:21 Pulse 73 12/15/24 11:23 Resp 16 12/15/24 05:32 BP 148/90 H 12/15/24 11:23 Pulse Ox 98 12/15/24 05:38 Comments: Gen - NAD Abd - soft, nontender, gravid, obese, pannus overhangs lower abdomen SVE - 5 / 80 / -2. 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 GBS negative Apparent polyhydramnios at AROM Labor Progress: Favorable cervix after Cytotec ripening Maternal Status: HTN on nifedipine and labetalol Normal HELLP labs at admit Plan Plan: Continue augmentation with Pitocin
[2024-12-15] MEDS: MAGNESIUM IV 4 GM/100 ML PIGGYBACK IVPB (15:05)
[2024-12-15] MEDS: MAGNESIUM Infusion 40 GM/1,000 ML IV.SOLN IVPB (15:41)
--- NOTE | 2024-12-15 16:07 | P.OBPN_ITS ---
Subjective Time Seen by Provider: 15:30 Date Seen: 12/15/24 Narrative: Sandra is a 24 yo C1Q9-9-1-4 woman at 37 2/7 weeks' gestation here for IOL for chronic HTN complicating . Thus far, she has had 5 doses of vaginal cytotec for cervical ripening. She was started on oxytocin for IOL at 10 AM, current at a dose of 6 mU/min. She had AROM this morning. In the last 30 minutes or so, contraction strength has increased. She is now using nitrous for contraction pain. She just had another severe-range BP; repeat was again lower and not requiring anti-hypertensives. She denies CARR or visual changes. OB Problem List: # Chronic hypertension Started nifedipine ER 30mg daily on 09/17 Started labetalol 100 mg BID on 10/14 Increase labetalol to 200mg BID # Moderate polyhydramnios noted at 28 weeks: JAYRO 32.5, SDP 9.4 Repeat JAYRO at 30 weeks 10/27/24: mild polyhydramnios: SDP 10.0cm, JAYRO 27.2cm # BMI greater than 45.5 Referral to anesthesia: placed 10/14 # Anxiety and depression. Started Lexapro 10mg @ 1st OB. # Asthma, mild intermittent # History of seizure disorder. Seizure free for 3-4 years off medication # rubella nonimmune MMR Objective Vital Signs: BP 149/89 Comments: Gen - breathing through contractions with mask on, appears pained Lower extremities - 1+ edema bilaterally SVE - 5 / 80 / 0 station, deviated to patient's left and soft. Contractions Pitocin Rate (mU/min): 2 Assessment Assessment: early labor Status: Category l Heart Rate Baseline: 140 [employer] Variability: Moderate (6-25) Monitor Accelerations: Present Monitor Decelerations: None Tracing Comments: Reassuring. GBS negative Apparent polyhydramnios at AROM Labor Progress: No significant change in cervical exam since last check, though station has increased. Maternal Status: Now with severe gestational HTN despite nifedipine and labetalol Normal HELLP labs at admit Plan Plan: Continue augmentation with Pitocin Begin magnesium sulfate for seizure prophylaxis HELLP labs Q 6 hours Continuous monitoring.
[2024-12-15 16:37] LABS: Hematocrit 29.4 % (33.0-51.0); Hemoglobin* 9.5 gm/dL (12.0-16.0); Mean Corpuscular HGB Conc 32 gm/dL (32-36); Mean Corpuscular Hemoglobin 27 pg (26-34); Mean Corpuscular Volume 82 fL (80-100)
[2024-12-15 16:40] LABS: Alanine Aminotransferase* 35 U/L (4-35); Aspartate Amino Transferase* 21 U/L (12-35); Blood Urea Nitrogen* 10 mg/dL (5-24); Creatinine* 0.5 mg/dL (0.5-1.5); Est. Creatinine Clearance* 165.81; Estimated Glomerular Filt Rate 133 ml/min
[2024-12-15 16:41] LABS: Platelet Count* 133 K/uL (140-440); Red Blood Count 3.95 m/uL (4.00-5.20); Slide Review Reflex No; White Blood Count* 13.12 K/uL (4.50-11.00)
[2024-12-15] MEDS: HYDRALAZINE HCL 20 MG/ML inj IVP (16:47)
[2024-12-15 17:20] LABS: Platelet Count* 347 K/uL (140-440)
[2024-12-15] MEDS: LIDOCAINE 2% (PF) 5 ML VIAL EPIDURAL (17:43)
[2024-12-15] MEDS: ROPIVACAINE 0.2% 100 ml 100 ML 12 MG EPIDURAL (17:43)
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
[2024-12-15] MEDS: ONDANSETRON 2 MG/ML inj 4 MG IV (21:10)
[2024-12-15] MEDS: OXYTOCIN 30 unit/500 ML in NS 30 UNIT/500 ML BAG 300 UNIT IVPB (21:30)
[2024-12-15 21:38] LABS: Hematocrit 36.9 % (33.0-51.0); Hemoglobin* 11.8 gm/dL (12.0-16.0); Mean Corpuscular HGB Conc 32 gm/dL (32-36); Mean Corpuscular Hemoglobin 26 pg (26-34); Mean Corpuscular Volume 83 fL (80-100); Platelet Count* 329 K/uL (140-440); Red Blood Count 4.47 m/uL (4.00-5.20); White Blood Count* 17.39 K/uL (4.50-11.00)
[2024-12-15 21:42] LABS: Slide Review Reflex No
--- NOTE | 2024-12-15 21:45 | W.PM.VAGDEL1 ---
Procedure Delivery date: 12/15/24 Procedure Done: Global Procedure Details: The patient is a 24 year-old G 2 P 1-0-0-1 woman admitted on 12/14/2024 at 37 Weeks, 1 Days gestation for induction of labor for indication of chronic hypertension requiring medications.? Cervical exam on admission was 1.5/20/ballotable with membranes intact in vertex presentation.? heart rate demonstrated baseline 135 bpm with moderate variability, positive accelerations, no decelerations; a category 1 tracing.? She had 5 doses of vaginal Cytotec for cervical ripening, followed by Pitocin for augmentation of labor. AROM occurred at 11:10 a.m. on 12/15/2024 with copious clear fluid. ? Labor Analgesia:? Nitrous followed by epidural ? Pitocin:? Yes ? Labor onset:? Uncertain ? Complete:? 8:57 p.m. ? Pushing:? 9:15 p.m. ? heart tones during second stage were notable for a terminal deceleration to 100s for the 2 minutes prior to . ? At 9:28 p.m. a viable male infant delivered in vertex SOHAN presentation over small second-degree perineal laceration via spontaneous vaginal delivery.? was placed on maternal abdomen.? Cord was clamped and cut after a 30-60 second delay.? Nose and mouth were bulb suctioned.? Infant weight pending.? 8 at 1 minute and 9 at 5 minutes.? Shoulder dystocia: No.? Nuchal cord: No, but right nuchal arm noted. ? Placenta delivered spontaneously and complete at 9:38 p.m. with a 3 vessel cord. ? Mother and infant were stable after delivery. ? Lacerations:? Small second-degree perineal laceration and bilateral periurethral laceration. The second-degree perineal laceration was repaired in the usual fashion with 3-0 Vicryl. The right periurethral laceration was bleeding heavily, which was addressed with a single [id number] suture of 3-0 Vicryl. The left periurethral laceration was shallow and did not require repair. ? Blood loss: 150 mL. Blood loss measurement type: 150 ? Sponge and needles counts are correct. Estimated blood loss (mL): 150 Infant Gender: Male total score - 1 minute: 8 total score - 5 minute: 9
[2024-12-16] VITALS (11 sets, daily range): BP systolic 98–139; BP diastolic 65–86; PULSE 74–105; RESP 14–18; TEMP 36.4–36.8; O2SAT 95–98
[2024-12-16] MEDS: ACETAMINOPHEN 500 MG TABLET 1000 MG PO ×3 (00:02→14:37)
[2024-12-16] MEDS: IBUPROFEN 600 MG TABLET PO ×3 (02:59→16:34)
[2024-12-16 03:13] LABS: Hematocrit 30.6 % (33.0-51.0); Mean Corpuscular HGB Conc 33 gm/dL (32-36); Mean Corpuscular Hemoglobin 27 pg (26-34); Mean Corpuscular Volume 82 fL (80-100); Platelet Count* 295 K/uL (140-440); Red Blood Count 3.74 m/uL (4.00-5.20); White Blood Count* 17.41 K/uL (4.50-11.00)
[2024-12-16 03:16] LABS: Slide Review Reflex No
[2024-12-16 03:27] LABS: Aspartate Amino Transferase* 22 U/L (12-35); Creatinine* 0.5 mg/dL (0.5-1.5); Est. Creatinine Clearance* 165.81; Estimated Glomerular Filt Rate 133 ml/min
[2024-12-16 03:28] LABS: Alanine Aminotransferase* 29 U/L (4-35); Blood Urea Nitrogen* 8 mg/dL (5-24)
[2024-12-16] MEDS: LACTATED RINGERS 1000 ML 1,000 ML 25 ML IV (03:40)
--- NOTE | 2024-12-16 08:11 | PM.OBPNVD1 ---
OB - PN:Subj Subjective Time Seen by Provider: 08:11 Date Seen: 12/16/24 Interval history: The patient feels well.? The pain is well controlled with current medications.? She has no new complaints.? Urinary output is adequate and she is voiding without difficulty.? Has a good appetite, is tolerating a general diet, is passing flatus, and has not had a bowel movement.? Has small amount of rubra lochia.? She is ambulating well. She is bottle feeding and reports it is going well. Magnesium sulfate infusion ongoing. Denies headaches, vision changes or pain in the upper abdomen. Blood pressures today within normal limits. Last set of labs at 3:00 a.m. this morning show mild anemia, normal platelets, normal kidney and liver function. Patient comments OB post-: no complaints [place] status: bottle feeding status: exclusively bottle feeding OB - PN: Obj Exam Physical Exam: Vital signs: Temp Pulse Resp BP Pulse Ox O2 Del Method 98.2 F 89 14 139/82 98 Room Air 12/16/24 04:12 12/16/24 06:31 12/16/24 04:12 12/16/24 07:43 12/16/24 07:43 12/16/24 07:43 Narrative: VITAL SIGNS: As noted above. GENERAL APPEARANCE: Alert, cooperative female in no acute distress. MOOD & AFFECT: Normal. HEART: Regular rate and rhythm without murmurs. LUNGS: Lungs are clear to auscultation bilaterally. No crackles, wheezes, or rhonchi. ABDOMEN: Soft, non-distended and nontender. Uterus well contracted. : Normal lochia. EXTREMITIES: Bilateral pitting edema +1 up to ankles. Well perfused. Nontender. NEURO: Intact. OB - PN: Obj Data Labs Labs: Laboratory Results - last 24 hr 12/15/24 12/15/24 12/15/24 16:10 16:15 17:15 WBC 13.12 H RBC 3.95 L Hgb 9.5 L Hct 29.4 L MCV 82 MCH 27 MCHC 32 Plt Count 133 L 347 BUN 10 Creatinine 0.5 Estimated Creat Clear 165.81 Estimated GFR 133 AST 21 ALT 35 12/15/24 12/16/24 21:16 03:05 WBC 17.39 H 17.41 H RBC 4.47 3.74 L Hgb 11.8 L 10.0 L Hct 36.9 30.6 L MCV 83 82 MCH 26 27 MCHC 32 33 Plt Count 329 295 BUN 8 Creatinine 0.5 Estimated Creat Clear 165.81 Estimated GFR 133 AST 22 ALT 29 OB - PN: A/P Delivery Assessment and Plan (1) Polyhydramnios: Problem details: Mild Status: Acute (2) BMI 45.0-49.9, adult: Status: Acute (3) GERD (gastroesophageal reflux disease): Status: Acute (4) Chronic hypertension: Problem details: with gestational exacerbation. 12/02/24: Nifedipine ER 30mg daily, labetalol 200mg BID Status: Acute (5) Asthma: Status: Acute (6) Anxiety and depression: Status: Acute (7) Seizure disorder: Problem details: Questionable diagnosis, no AEDs Status: Acute Plan day: 1 Plan: routine care Comments: 1. Continue magnesium sulfate infusion to complete 24 hours after delivery which would be around 9:30 p.m. tonight. 2. Continue scheduled labs. 3. Continue close monitoring of urinary output and Magnesium sulfate toxicity symptoms. 4. Close monitoring of vital signs. Will continue with nifedipine 30 mg twice a day as well as labetalol 200 mg twice a day for the moment. 5. Patient understands recommendation to complete at least 24 hours of observation after discontinuation of magnesium sulfate infusion. Expect discharge home , if continues to be stable.
[2024-12-16] MEDS: LABETALOL HCL 100 MG TABLET 200 MG PO ×2 (08:52→21:29)
[2024-12-16] MEDS: DOCUSATE SODIUM 100 MG CAPSULE PO (08:53)
[2024-12-16] MEDS: NIFEdipine 30 MG TAB.ER.24 PO ×2 (08:54→21:29)
[2024-12-16 09:11] LABS: Hemoglobin* 10.8 gm/dL (12.0-16.0); Mean Corpuscular HGB Conc 33 gm/dL (32-36); Mean Corpuscular Hemoglobin 27 pg (26-34); Mean Corpuscular Volume 82 fL (80-100); Platelet Count* 314 K/uL (140-440); Red Blood Count 4.02 m/uL (4.00-5.20); White Blood Count* 14.88 K/uL (4.50-11.00)
[2024-12-16 09:18] LABS: Slide Review Reflex No
[2024-12-16 09:34] LABS: Alanine Aminotransferase* 29 U/L (4-35); Aspartate Amino Transferase* 23 U/L (12-35); Blood Urea Nitrogen* 8 mg/dL (5-24); Creatinine* 0.6 mg/dL (0.5-1.5); Est. Creatinine Clearance* 138.17; Estimated Glomerular Filt Rate 127 ml/min
[2024-12-16] MEDS: MAGNESIUM Infusion 40 GM/1,000 ML IV.SOLN IVPB (11:55)
--- NOTE | 2024-12-16 12:35 | PM.ANPOST ---
Post Anesthesia Note Post Anesthesia Note Patient seen: Inpatient Respiratory Status: adequate Cardiovascular Status: adequate Mental Status: baseline Pain: adequate Temp: baseline Anesthetic awareness: N/A Complications: none Follow care: none
[2024-12-16 15:14] LABS: Hematocrit 30.1 % (33.0-51.0); Hemoglobin* 9.7 gm/dL (12.0-16.0); Mean Corpuscular HGB Conc 32 gm/dL (32-36); Mean Corpuscular Hemoglobin 27 pg (26-34); Mean Corpuscular Volume 82 fL (80-100); Platelet Count* 292 K/uL (140-440); Red Blood Count 3.66 m/uL (4.00-5.20); White Blood Count* 12.85 K/uL (4.50-11.00)
[2024-12-16 15:21] LABS: Slide Review Reflex No
[2024-12-16 15:55] LABS: Aspartate Amino Transferase* 21 U/L (12-35); Creatinine* 0.6 mg/dL (0.5-1.5); Est. Creatinine Clearance* 138.17; Estimated Glomerular Filt Rate 127 ml/min
[2024-12-16 15:56] LABS: Alanine Aminotransferase* 27 U/L (4-35); Blood Urea Nitrogen* 11 mg/dL (5-24)
[2024-12-16 18:05] LABS: Rapid Plasma Reagin (RPR) Non Reactive (Non Reactive)
[2024-12-16] MEDS: FERROUS SULFATE 325 MG TABLET PO (22:23)
[2024-12-17] VITALS (7 sets, daily range): BP systolic 118–137; BP diastolic 74–84; PULSE 78–87; RESP 16; TEMP 36.4–36.6; O2SAT 95–98
[2024-12-17] MEDS: ACETAMINOPHEN 500 MG TABLET 1000 MG PO ×4 (00:44→23:33)
[2024-12-17] MEDS: IBUPROFEN 600 MG TABLET PO ×2 (04:08→20:36)
--- NOTE | 2024-12-17 07:30 | PM.OBPNVD1 ---
OB - PN:Subj Subjective Time Seen by Provider: 07:15 Date Seen: 12/17/24 Narrative: Sandra is a 24-year-old seen on day 2 from [facility]. Induced for chronic hypertension exacerbation, and subsequently developed superimposed preeclampsia with severe features in the period (by severe range blood pressures). She finished her infusion of magnesium sulfate yesterday at about 2100. Serial HELLP labs were obtained, no thrombocytopenia, SHEA or transaminitis. She has been maintained on nifedipine 30 mg XL daily and labetalol 200 mg b.i.d.. Yesterday, she did have an episode of lightheadedness when she went from sitting to standing and was noted to have mild asymptomatic hypotension to normal range BPs. This morning, she notes she is feeling well though fatigued. She does continue to have some back and abdominal pain, improved with ibuprofen and Tylenol. Appetite is less than baseline, but she is tolerating p.o. intake without nausea or vomiting. Ambulates without dizziness or lightheadedness. She has no headaches, vision changes or right upper quadrant pain. At some point overnight, she thought her right leg was more swollen than the left but notes this has resolved this morning. No calf erythema or pain. Lochia is described as mild, notes it does vary in volume however. No bowel or bladder concerns. Robust urine output. Baby Byron is doing well. OB - PN: Obj Exam Physical Exam: Vital signs: Temp Pulse Resp BP Pulse Ox O2 Del Method 97.6 F 78 16 118/80 98 Room Air 12/17/24 04:11 12/17/24 04:11 12/17/24 04:11 12/17/24 04:11 12/17/24 04:11 12/17/24 04:11 Narrative: General: Alert and oriented, no acute distress Psych: Appropriate mood and affect Abdomen: Soft, nondistended and nontender. Fundus at umbilicus. Back: 3x2cm sized bruise at site of epidural insertion, mildly tender. Extremities: 1+ pitting edema that is equal bilaterally, no calf erythema or tenderness OB - PN: Obj Data Labs Labs: Laboratory Results - last 24 hr 12/14/24 12/16/24 12/16/24 17:10 09:02 15:09 WBC 14.88 H 12.85 H RBC 4.02 3.66 L Hgb 10.8 L 9.7 L Hct 33.0 30.1 L MCV 82 82 MCH 27 27 MCHC 33 32 Plt Count 314 292 BUN 8 11 Creatinine 0.6 0.6 Estimated Creat Clear 138.17 138.17 Estimated GFR 127 127 AST 23 21 ALT 29 27 RPR Screen Non Reactive OB - PN: A/P Delivery Assessment and Plan (1) Polyhydramnios: Problem details: Mild Status: Acute (2) BMI 45.0-49.9, adult: Status: Acute (3) GERD (gastroesophageal reflux disease): Status: Acute (4) Chronic hypertension: Problem details: with gestational exacerbation. 12/02/24: Nifedipine ER 30mg daily, labetalol 200mg BID Status: Acute (5) Asthma: Status: Acute (6) Anxiety and depression: Status: Acute (7) Seizure disorder: Problem details: Questionable diagnosis, no AEDs Status: Acute Plan Sandra is a 24-year-old seen on day 2 from [facility]. She was initially induced for chronic hypertension exacerbation, subsequently developed superimposed preeclampsia with severe features in the immediate course. was otherwise complicated by polyhydramnios, asthma, anxiety/depression, obesity and questionable diagnosis of a seizure disorder. She is now status post 24 hours of magnesium, ending yesterday at about 2100. Serial HELLP labs throughout that time were unremarkable. She has no headache, vision changes or right upper quadrant pain. 1+ pitting edema, stable bilaterally. Robust urine output. With regard to her blood pressures, I would actually advocate that we deescalate for now due to very low but normal blood pressures. In the last 24 hours, BP's have ranged from 98-128/65-83. In addition, she had 1 episode of dizziness when to and from sitting to standing yesterday. As such, I would recommend we continue nifedipine 30 mg XL b.i.d. and hold labetalol 200 mg b.i.d.. If she has a rebound in her blood pressures, we could certainly consider resuming this later today. Otherwise, continue to closely monitor her blood pressure and urine output. Discussed recommendation for observation for 24 hours status post magnesium sulfate therapy, where would recommend consideration for dismissal tomorrow. Patient expressed understanding and is agreeable to plan. Otherwise routine cares. She continues to have some pain in bruising at her epidural site, discussed utilizing ibuprofen/Tylenol for this. Consider re-evaluation by Anesthesia if she has worsening symptoms. Plan day: 2
[2024-12-17] MEDS: DOCUSATE SODIUM 100 MG CAPSULE PO (08:49)
[2024-12-17] MEDS: NIFEdipine 30 MG TAB.ER.24 PO ×2 (08:49→21:02)
[2024-12-18] MEDS: IBUPROFEN 600 MG TABLET PO (02:27)
[2024-12-18 04:47] VITALS: BP 127/85; PULSE 79; RESP 16; TEMP 36.6; O2SAT 97
[2024-12-18] MEDS: ACETAMINOPHEN 500 MG TABLET 1000 MG PO (05:38)
--- NOTE | 2024-12-18 07:37 | PM.OBDSVD1 ---
DS: Providers Provider Date Seen: 12/18/24 Date of admission: 12/14/24 15:57 Primary care physician: Darryn Johnson MD Admitting Clinician: Ankita Redman MD Attending Physician on discharge: Cynthia Ramírez MD DS: Diagnosis Discharge Diagnosis (1) Polyhydramnios: Status: Acute Problem details: Mild (2) Obesity affecting : Status: Acute (3) Chronic hypertension: Status: Acute Problem details: with gestational exacerbation. 12/02/24: Nifedipine ER 30mg daily, labetalol 200mg BID (4) Anemia due to acute blood loss: Status: Acute Exam Narrative: Exam Narrative: General: Pleasant, , well groomed woman in no acute distress. Vital signs: Included in her electronic medical record. Heart: Regular rate and rhythm without gallop, rub or murmur. Chest: Clear to auscultation bilaterally. Abdomen: Soft, nontender and nondistended. Normal bowel sounds throughout. Fundus: Firm, midline, 2 cm below the umbilicus. Extremities: No pain. Edema: 1+ BLE edema to the ankle: normal for ppd#3. Const: Vital Signs, click to edit/add: Vital Signs - 24 hr 12/17/24 08:50 12/17/24 12:44 12/17/24 17:11 Temperature 97.9 F Pulse Rate [Pulse Oximeter] 79 87 Respiratory Rate 16 Blood Pressure [Le ft Arm] 118/77 137/84 120/81 Pulse Oximetry 98 96 Oxygen Delivery Me thod Room Air 12/17/24 20:31 12/17/24 23:32 12/18/24 04:47 Temperature 98 F 97.6 F 97.8 F Pulse Rate [Pulse Oximeter] 78 78 79 Respiratory Rate 16 16 16 Blood Pressure [Le ft Arm] 127/81 123/79 127/85 Pulse Oximetry 97 97 97 Oxygen Delivery Me thod Room Air Room Air Room Air OB - DS: Summary Hospital Course Hospital Course: The patient is a 24 year old G 2 P 1001 now 2 at 37 and 1/7 weeks gestation that was admitted to the Center on 12/14/24 for induction of labor due to chronic hypertension with gestational exacerbation on medication. She had an uncomplicated vaginal delivery. She delivered a viable male infant. She is bottle feeding. Intrapartum the patient developed severe range blood pressures so was started on magnesium for seizure prophylaxis. Magnesium was completed at 9:28 p.m. on 12/16/2024. Her blood pressures were low after the magnesium was discontinued so her labetalol was discontinued. Her blood pressures have been normal on nifedipine ER 30 mg b.i.d.. She would like to be discharged home today. Peripartum Data Infant delivery method: Vaginal Laceration description: Perineal - 2nd Degree complications: none Infant Gender: Male Time Spent with Patient Time attestation: Total time spent providing and/or coordinating discharge services: Time spent: Less than 30 minutes Discharge Plan Discharge Disposition: Home, Self-Care Date of Admission: 12/14/24 15:57 Attending Provider on Discharge: Cynthia Ramírez Consulting Providers: Conchita Jimenez Primary Care Provider: Darryn Johnson Condition: Improved Anticipated Discharge Date/Time: 12/18/24 12:30 Discharge Medications: New nifedipine 30 mg Tablet Extended Release 24hr 30 mg PO BID Qty: 120 0RF ferrous sulfate 325 mg (65 mg iron) Tablet 325 mg PO Q48H Qty: 50 0RF ibuprofen 600 mg Tablet 600 mg PO Q6H PRNQty: 30 0RF Continued albuterol sulfate 90 mcg/actuation HFA aerosol inhaler 2 puff inhalation Q6H PRN famotidine [Pepcid] 20 mg tablet 20 mg PO BID Qty: 30 0RF Discontinued SLS-cikj-[id number]-omega 3-fat com #1 27-1-300 mg capsule 1 cap PO DAILY labetalol 100 mg tablet 200 mg PO BID Qty: 120 3RF aspirin 81 mg tablet,chewable 81 mg PO QDAY nifedipine 30 mg tablet extended release 30 mg PO QDAY Qty: 30 2RF magnesium 200 mg tablet 200 mg PO QDAY Discharge Orders: Discharge Order (Routine); Ordered 12/18/24 Ordered By: Cynthia Ramírez Patient Education: Preeclampsia and Eclampsia After Delivery (GEN) Additional Instructions: ACTIVITY RESTRICTIONS: ? Nothing vaginally for 6 weeks: no tampons or intercourse Off Work or School for a minimum of 6 weeks Symptoms to report to doctor: Bleeding that saturates more than one pad per hour Passing clots larger than the size of a golf ball Pain not relieved by prescribed medication Fever above 100.4 degrees Fahrenheit A foul vaginal odor Difficulty in emotions, mood, and functions Thoughts of hurting yourself and/or Painful, reddened area in your breast Any drainage, redness, or tenderness in your IV/epidural site Severe headache that doesn't improve after taking medications Changes in vision, including temporary loss of vision, blurred vision, and/or light sensitivity Upper abdominal pain (usually under ribs on the right side) Decrease in urination or painful, frequent urinating Chest pain Shortness of breath Tenderness or pain with redness and/swelling in the calf(s) of your leg [facility] for a BP check?12/22/2024 with an [employer] physician Call with BP greater than or equal to 160/110 or less than 90/60. Follow-up appointments: 1. Optional 2-week visit: incision check, discuss infant feeding concerns, review control options and screen for anxiety/depression. 2. 6-week visit for an annual exam. consultation services are available to all mothers and babies for the first year after delivery.? To make an appointment, please call [phone]. Activity Level: Other Discharge Diet: Regular Follow Up Appointments: [facility] [Outside] Darryn Johnson MD [Primary Care Provider] - Forms: [employer] Info Instructions
[2024-12-18 08:36] VITALS: BP 142/90; PULSE 86; RESP 18; TEMP 36.7; O2SAT 98
[2024-12-18] MEDS: DOCUSATE SODIUM 100 MG CAPSULE PO (08:40)
[2024-12-18] MEDS: NIFEdipine 30 MG TAB.ER.24 PO (08:40)
== END 2024-12-18 12:30 | disposition home or self-care (01) | DRG 806 ==
PROVIDERS: Obstetrics & Gynecology; Admitting Provider Obstetrics & Gynecology; PCP Family Medicine; Visit Provider Obstetrics & Gynecology
DX: O10.02 Pre-existing essential hypertension complicating childbirth (principal); D62 Acute posthemorrhagic anemia; O70.1 Second degree perineal laceration during delivery; O71.82 Other specified trauma to perineum and vulva; O99.214 Obesity complicating childbirth; E66.9 Obesity, unspecified; O40.3XX0 Polyhydramnios, third trimester, not applicable or unspecified; O99.344 Other mental disorders complicating childbirth; F41.9 Anxiety disorder, unspecified; F32.A Depression, unspecified; O36.63X0 Maternal care for excessive fetal growth, third trimester, not applicable or unspecified; J45.909 Unspecified asthma, uncomplicated; K21.9 Gastro-esophageal reflux disease without esophagitis; O14.15 Severe pre-eclampsia, complicating the puerperium; O90.81 Anemia of the puerperium; Z86.69 Personal history of other diseases of the nervous system and sense organs; Z78.9 Other specified health status; Z37.0 Single live birth; Z3A.37 37 weeks gestation of pregnancy
CPT/HCPCS: 01967; 36415; 59200; 82565; 82570; 84156; 84450; 84460; 84520; 85027; 85049; 86592; 86850; 86900; 86901; 88307; A9270; J0360; J2371; J2405; J2795; J3475; J7120

== ENCOUNTER 2025-02-26 10:03 | Outpatient (CLI) | payer OTHER, SELFPAY | END 2025-02-26 10:04 | disposition home or self-care (01) | PROVIDERS: PCP Family Medicine; Visit Provider Family Medicine | DX: I10 Essential (primary) hypertension (principal) | CPT/HCPCS: 80048; 85025 ==

== ENCOUNTER 2025-09-24 15:15 | Outpatient (CLI) | payer OTHER, SELFPAY ==
--- NOTE | 2025-09-24 15:30 | CRLHL7_ITS ---
For Patients: As a result of the Century Cures Act, medical imaging exams and procedure reports are released immediately into your electronic medical record. You may view this report before your referring provider. If you have questions, please contact your health care provider. CLINICAL INDICATION: Right shoulder pain. COMPARISON IMAGING STUDIES: None available at time of interpretation. TECHNICAL: Non-contrast MRI of the right shoulder. Axial, sagittal oblique and coronal oblique T1, PD, PD FS, T2 and T2 FS images. 1.5 Samara MR scanner. FINDINGS: GLENOHUMERAL JOINT: Effusion/Joint Space: No effusion. No joint bodies. Humeral Head Articular Cartilage: Maintained. Glenoid Articular Cartilage: Maintained. Alignment: Maintained. Capsule: No capsular edema or abnormal capsular thickening. OSSEOUS STRUCTURES: No fracture or marrow replacement process. CORACOACROMIAL ARCH: Acromial Morphology: Type 2 acromial morphology. No excessive lateral or anterior downward sloping of the acromion. No os acromiale. No significant subacromial spur. Lateral acromial thickness is 7 mm. Acromiohumeral Interval: At its narrowest, the interval measures 6 mm. Coracohumeral Interval: At its narrowest, the coracohumeral interval measures 10 mm. Coracoid index is 20 mm. ACROMIOCLAVICULAR JOINT REGION: AC joint intact. Coracoclavicular ligament intact. BURSAE: No bursal fluid collection. ROTATOR CUFF TENDONS AND MUSCLES AND DELTOID: Supraspinatus and Infraspinatus: No distal supraspinatus or infraspinatus tendon tear. No muscle atrophy or muscle edema. Teres Minor: No distal tendon tear or muscle atrophy. Subscapularis: No distal tendon tear or muscle atrophy. Deltoid: No muscle atrophy or edema. BICEPS TENDON, LONG HEAD: The long head of the biceps tendon is intact. No subluxation or dislocation of tendon from bicipital groove. GLENOID LABRUM: Intact. OTHER FINDINGS: There is no abnormality within the suprascapular or spinoglenoid notches nor within the quadrilateral space. No axillary adenopathy or mass. IMPRESSION: 1. Rotator cuff tendons of the right shoulder are intact. 2. Glenohumeral joint maintained. 3. No bursitis. Dictated by Melchor Gibbs MD @ 09/25/2025 11:47:25 AM (Electronically Signed)
== END 2025-09-24 15:16 | disposition home or self-care (01) ==
LOC: MRI 15:17
PROVIDERS: PCP Family Medicine; Visit Provider Family Medicine
DX: M25.511 Pain in right shoulder (principal); S49.91XA Unspecified injury of right shoulder and upper arm, initial encounter
CPT/HCPCS: 73221